=== PATIENT | male | born 1965 | race Caucasian/White ===

== ENCOUNTER 2016-03-01 07:26 | Day surgery (SDC) | payer OTHER ==
--- NOTE | 2016-02-09 09:53 | HP ---
DATE OF ADMISSION: Patient to be admitted to the [facility] in the near future, date to be determined. HISTORY: This is a 49-year-old man admitted to the [facility] for reduction and repair of a chronically incarcerated ventral hernia. According to the patient, he has had a small umbilical hernia for many years. More recently he has developed a painful bulge just to the left of the supraumbilical region. On examination, he has an obvious incarcerated ventral hernia in addition to a small defect in the umbilicus itself. No underlying GI, , or respiratory complaints to suggest a predisposition to hernia formation. Patient's past medical history is essentially nil. No history of hypertension; heart disease; diabetes; respiratory, renal or hepatic insufficiency. Past surgical history significant for shoulder surgery. ALLERGIES: None known. REGULAR MEDICATIONS: None. He does use Motrin and ibuprofen on a p.r.n. basis. SOCIAL HISTORY: Negative tobacco, negative alcohol. FAMILY HISTORY: Mother, history of rheumatoid arthritis; siblings, one with testicular cancer. REVIEW OF SYSTEMS: Nil. PHYSICAL EXAMINATION: The patient has an obvious small umbilical hernia; however, in the supraumbilical region and off to the left of the umbilicus, there is a hard tender mass which is either an extension of the umbilical hernia up into the midline, or a new ventral hernia itself. Nonetheless, the findings are consistent with chronically incarcerated ventral hernia. IMPRESSION: Chronically incarcerated ventral hernia. PLAN: Reduction and repair of chronically incarcerated ventral hernia with mesh. The indications, alternatives, possible complications reviewed. Consent obtained. Patient was seen preoperatively by Dr. Kirit Shi. Please refer to his notes for those medical details. Jaqueline LEE/[id number] cc: Kirit Shi MD
[2016-02-25 12:01] VITALS: BMI 26.5
[2016-03-01] MEDS ORDERED: TAMSULOSIN HCL 0.4 MG CAP.ER.24H (FP) ONE (07:39)
[2016-03-01] MEDS ORDERED: PROPOFOL 20 ML ONE (08:47)
[2016-03-01] MEDS ORDERED: ROCURONIUM BROMIDE 50 MG/5 ML VIAL ONE ×2 (08:47→10:28)
[2016-03-01] MEDS ORDERED: DEXAMETHASONE SOD PHOSPHATE 4 MG/1 ML VIAL ONE ×2 (08:48→10:33)
[2016-03-01] MEDS ORDERED: ONDANSETRON 4 MG/2 ML VIAL ONE ×2 (08:48→10:33)
[2016-03-01] MEDS ORDERED: LIDOCAINE HCL/PF 2% SDV 5ML VIAL ONE (08:48)
[2016-03-01] MEDS ORDERED: MIDAZOLAM HCL 2 MG/2 ML SINGLE DOSE VIAL ONE (09:31)
[2016-03-01] MEDS ORDERED: ceFAZolin SODIUM 1 GM VIAL ONE (10:20)
[2016-03-01] MEDS ORDERED: KETOROLAC TROMETHAMINE 30 MG/1 ML VIAL ONE (10:33)
[2016-03-01] MEDS ORDERED: NEOSTIGMINE METHYLSULFATE 0.5 MG/ML - 10 ML MDV ONE (10:34)
[2016-03-01] MEDS ORDERED: LIDOCAINE HCL 2% JELLY (5 ML/TUBE) ONE ×2 (10:45→10:46)
[2016-03-01] MEDS ORDERED: ONDANSETRON 4 MG/2 ML VIAL IVPUSH PRN (10:59)
[2016-03-01] MEDS ORDERED: oxyCODONE HCL 5 MG TABLET PO PRN ×2 (10:59)
[2016-03-01] MEDS ORDERED: LACTATED RINGERS SOLUTION 1,000 ML IV SCH (11:00)
--- NOTE | 2016-03-01 12:17 | OP ---
DATE OF OPERATION: 03/01/2016 PREOPERATIVE DIAGNOSIS: Incarcerated ventral hernia. POSTOPERATIVE DIAGNOSIS: Incarcerated ventral hernia. PROCEDURE: Reduction and repair of incarcerated ventral hernia with mesh. OPERATING SURGEON: Naima Michel MD TELEVISION HOST: Stalin Gallego DO ANESTHESIA: Nelson Rangel MD (general) HISTORY: This 50-year-old man was admitted to the hospital for reduction repair of chronically incarcerated ventral hernia involving the central ring of the abdomen extending up just into the supraumbilical region and off to the left of the midline. Indications, alternatives, and possible complications reviewed. Consent was obtained. DESCRIPTION OF PROCEDURE: With the patient in the supine position and after general anesthesia, the abdomen was prepped and draped in sterile fashion using chlorhexidine. A 5-cm transverse incision was made in the infraumbilical region and deepened into the subcutaneous space. The hernia sac was easily encountered. It was followed to the level of the fascial ring. The fascial ring was incised, and the hernia sac with its contents, which appeared to be fibrofatty in nature, were entirely reduced. Using sharp dissection, the retrorectus/preperitoneal space was created, creating enough space for placement of a Bard Ventralex ST Hernia Patch measuring 8 cm in diameter. The patch was placed in the retrorectus/preperitoneal space and pulled up against the undersurface of the anterior abdominal wall rectus musculature using its straps. The mesh was fixed in all 4 quadrants with through-and through No. 1 Prolene sutures, anchoring the mesh to the overlying rectus musculature. After irrigation and adequate hemostasis, the fascial defect was closed in the transverse fashion using interrupted 0 Vicryl sutures. The subcutaneous space was irrigated. Subcutaneous tissues were irrigated, and adequate hemostasis ensured. The wound was closed in layers. The deeper subcutaneous tissues were approximated with interrupted 3-0 Vicryl sutures. Subcuticular layer was approximated with 4 -0 Biosyn sutures. Skin was closed using 4-0 Biosyn subcuticular stitch in a continuous fascial. Mastisol and dressings were applied. Procedure terminated. INSTRUMENT COUNT: Correct. ESTIMATED BLOOD LOSS: Minimal. SPECIMENS: None. IMPLANT: Bard Ventralex ST Hernia Patch (8 cm in diameter). DRAINS: None. Patient tolerated the procedure. The procedure was terminated. NAIAM MICHEL M.D. EARL/[id number] cc: Kirit Shi MD MTDD
[2016-03-01] MEDS ORDERED: oxyCODONE HCL 5 MG TABLET ONE (14:00)
[2016-03-01 17:51] VITALS: BP 110/68; PULSE 72; TEMP 98.2
== END 2016-03-01 16:45 | disposition home or self-care (01) ==
LOC: FASU 07:26
PROVIDERS: ATTEND Surgery
PROC: 0WUF0JZ Supplement Abdominal Wall with Synthetic Substitute, Open Approach (ICD-10-PCS; principal; 2016-03-01 10:09)
DX: K43.6 Other and unspecified ventral hernia with obstruction, without gangrene (principal)
CPT/HCPCS: 94010; 94760